=== PATIENT | female | born 1990 | race Caucasian/White ===

== ENCOUNTER 2018-11-14 18:32 | Emergency (ER) | payer BC ==
[~2018-11-14] VITALS: Ht 170.2 cm; Wt 61.2 kg
[2018-11-14] MEDS ORDERED: Prednisone20 MG PO (21:07)
[2018-11-14] MEDS ORDERED: EPIPEN 2-P0.3 MG/0.3 IM (21:07)
== END 2018-11-14 21:38 | disposition home or self-care (01) ==
LOC: ER 18:32
DX: T63.461A Toxic effect of venom of wasps, accidental (unintentional), initial encounter (principal); T78.2XXA Anaphylactic shock, unspecified, initial encounter; F17.290 Nicotine dependence, other tobacco product, uncomplicated; Z79.52 Long term (current) use of systemic steroids
CPT/HCPCS: 96360; 99283-25; J7030